=== PATIENT | male | born 1975 | race African-American/Black ===

== ENCOUNTER 2019-10-14 10:01 | Inpatient (IN) ==
[2019-10-14 11:44] LABS: Basophils # 0.1 10*3/uL (0.0-0.2); Basophils % 0.4 % (0.0-0.8); Hematocrit 40.4 VOL% (42.0-52.0); Hemoglobin 13.3 GM/DL (14.0-18.0); Immature Granulocytes % 6.8 %; Immature Granulocytes Absolute 1.57 #; Lymphocytes # 1.5 10*3/uL (1.4-4.0); Lymphocytes % 6.5 % (21.2-54.2); Mean Corpuscular HGB Conc 32.9 GM/DL (32-36); Mean Platelet Volume 9.8 FL (9.6-12.0); Monocytes % 8.4 % (1.7-12.7); Neutrophils % 77.9 % (38.7-73.9); Platelet Count 325 T/CUMM (130-400); Red Blood Count 4.44 MC/CUMM (3.8-5.5); Red Cell Distribution Width 14.3 % (9.3-17.3); White Blood Count 23.2 T/CUMM (4-12)
[2019-10-14 12:02] LABS: Albumin 3.4 G/DL (3.4-5.0); Bilirubin,Total 1.3 MG/DL (0.2-1.0); Calcium 9.3 MG/DL (8.5-10.1); Osmolality,Calculated 257.8 MOS/KG (273-304); Total Protein 8.4 G/DL (6.4-8.3)
[2019-10-14 12:08] LABS: Band Neutrophils 9 % (0-10); Lymphocytes 4 % (20-55); Myelocytes 1 %; Segmented Neutrophils 79 % (50-85); Total Cells Counted 100
[2019-10-14 12:09] LABS: Hypochromasia Slight
[2019-10-14] MEDS ORDERED: SODIUM CHLORIDE 0.9% 1,000 ML IV STA (12:19)
[2019-10-14] MEDS ORDERED: CLINDAMYCIN INJ 900 MG in PREMIX 1 EACH IV STA (13:06)
[2019-10-14] MEDS ORDERED: DOCUSATE SODIUM 100 MG CAPSULE PO PRN (13:42)
[2019-10-14] MEDS ORDERED: LACTULOSE 20 GM/30 ML UDCUP PO PRN (13:42)
[2019-10-14] MEDS ORDERED: ONDANSETRON 4 MG/2 ML VIAL IV PRN (13:42)
[2019-10-14] MEDS ORDERED: MORPHINE 4 MG/1 ML VIAL IV PRN (13:42)
[2019-10-14] MEDS ORDERED: CLINDAMYCIN INJ 50 ML IV ONE (13:42)
[2019-10-14] MEDS ORDERED: ACETAMINOPHEN 325 MG TABLET PO PRN (13:42)
[2019-10-14] MEDS ORDERED: POTASSIUM CHLORIDE RIDER 10 MEQ in PREMIX 1 EACH IV PRN (13:48)
[2019-10-14] MEDS: VANCOMYCIN INJ 1,250 MG in SODIUM CHLORIDE 0.9% 250 ML IV SCH (18:29)
[2019-10-14] MEDS: METHOCARBAMOL 500 MG TABLET PO SCH ×2 (18:29→22:23)
[2019-10-14] MEDS: cefTRIAXone 1,000 MG in SYRINGE 1 EACH IV SCH (18:29)
[2019-10-14] MEDS: SODIUM CHLOR 0.9% KCL 40 MEQ 40 MEQ/1,000 ML BAG IV SCH (18:29)
[2019-10-14] MEDS: ATORVASTATIN 40 MG TABLET PO SCH (22:23)
[2019-10-14] MEDS: allopurinoL 100 MG TABLET PO SCH (22:23)
[2019-10-14] MEDS: POTASSIUM CHLORIDE 20 MEQ TABLET PO PRN (22:23)
[2019-10-15 01:47] LABS: Basophils # 0.1 10*3/uL (0.0-0.2); Basophils % 0.3 % (0.0-0.8); Eosinophils % 0.2 % (0.00-10.9); Hematocrit 34.5 VOL% (42.0-52.0); Hemoglobin 11.6 GM/DL (14.0-18.0); Immature Granulocytes % 5.8 %; Immature Granulocytes Absolute 0.94 #; Lymphocytes # 1.7 10*3/uL (1.4-4.0); Lymphocytes % 10.7 % (21.2-54.2); Mean Corpuscular HGB Conc 33.6 GM/DL (32-36); Mean Corpuscular Volume 90.3 FL (87-102); Mean Platelet Volume 10.1 FL (9.6-12.0); Monocytes % 7.5 % (1.7-12.7); Neutrophils % 75.5 % (38.7-73.9); Platelet Count 312 T/CUMM (130-400); Red Blood Count 3.82 MC/CUMM (3.8-5.5); Red Cell Distribution Width 14.4 % (9.3-17.3); White Blood Count 16.2 T/CUMM (4-12)
[2019-10-15 02:33] LABS: Albumin 2.9 G/DL (3.4-5.0); Bilirubin,Total 1.5 MG/DL (0.2-1.0); Calcium 8.4 MG/DL (8.5-10.1); Osmolality,Calculated 268.1 MOS/KG (273-304); Risk Ratio 2.72; Thyroid Stimulating Hormone 1.05 uIU/ml (0.358-3.74); Total Protein 6.6 G/DL (6.4-8.3); VLDL CHOLESTEROL 13.4 MG/DL
[2019-10-15 03:04] LABS: Anisocytosis 1+; Band Neutrophils 1 % (0-10); Lymphocytes 8 % (20-55); Myelocytes 1 %; Platelet Estimate Normal; Segmented Neutrophils 82 % (50-85); Total Cells Counted 100
[2019-10-15] MEDS: POTASSIUM CHLORIDE 20 MEQ TABLET PO PRN (03:54)
[2019-10-15] MEDS: SODIUM CHLOR 0.9% KCL 40 MEQ 40 MEQ/1,000 ML BAG IV SCH ×3 (03:55→18:16)
[2019-10-15] MEDS: VANCOMYCIN INJ 1,250 MG in SODIUM CHLORIDE 0.9% 250 ML IV SCH ×2 (06:41→18:16)
[2019-10-15] MEDS: SODIUM CHLORIDE 0.9% 1,000 ML IV SCH ×2 (07:36→07:37)
[2019-10-15 08:16] LABS: Cholesterol Crystals None Seen /LPF
[2019-10-15] MEDS: PANTOPRAZOLE 40 MG TABLET PO SCH (09:37)
[2019-10-15] MEDS: METHOCARBAMOL 500 MG TABLET PO SCH ×3 (09:37→21:08)
[2019-10-15] MEDS: allopurinoL 100 MG TABLET PO SCH ×3 (09:37→21:08)
[2019-10-15] MEDS: POTASSIUM CHLORIDE 20 MEQ TABLET PO SCH (09:37)
[2019-10-15] MEDS ORDERED: BUPIVACAINE 0.5% 50 ML VIAL ONE (13:49)
[2019-10-15] MEDS ORDERED: POTASSIUM CHLORIDE RIDER 100 ML IV ONE (14:15)
[2019-10-15] MEDS ORDERED: BACITRACIN OINT 0.9 GM PACK TOP ONE (14:16)
[2019-10-15] MEDS ORDERED: KETOROLAC 30 MG/1 ML VIAL IV PRN (14:43)
[2019-10-15] MEDS ORDERED: SUCCINYLCHOLINE 200 MG/10 ML VIAL ONE (15:01)
[2019-10-15] MEDS ORDERED: propofoL 200 MG/20 ML VIAL IV ONE (15:01)
[2019-10-15] MEDS ORDERED: fentaNYL 100 MCG/2 ML VIAL ONE (15:01)
[2019-10-15] MEDS ORDERED: ONDANSETRON 4 MG/2 ML VIAL ONE (15:02)
[2019-10-15] MEDS ORDERED: NEOSTIGMINE 10 MG/10 ML VIAL ONE (15:02)
[2019-10-15] MEDS ORDERED: ROCURONIUM 100 MG/10 ML VIAL IV ONE (15:02)
[2019-10-15] MEDS ORDERED: GLYCOPYRROLATE 0.4 MG/2 ML VIAL ONE (15:02)
[2019-10-15] MEDS: cefTRIAXone 1,000 MG in SYRINGE 1 EACH IV SCH (16:10)
[2019-10-15] MEDS: ATORVASTATIN 40 MG TABLET PO SCH (21:08)
[2019-10-16] MEDS: SODIUM CHLOR 0.9% KCL 40 MEQ 40 MEQ/1,000 ML BAG IV SCH ×4 (03:41→20:13)
[2019-10-16] MEDS: VANCOMYCIN INJ 1,250 MG in SODIUM CHLORIDE 0.9% 250 ML IV SCH ×2 (05:09→18:56)
[2019-10-16 05:44] LABS: Albumin 2.3 G/DL (3.4-5.0); Bilirubin,Total 0.9 MG/DL (0.2-1.0); Calcium 8.2 MG/DL (8.5-10.1); Osmolality,Calculated 270.7 MOS/KG (273-304); Total Protein 6.5 G/DL (6.4-8.3)
[2019-10-16 05:55] LABS: Basophils % 0.3 % (0.0-0.8); Eosinophils # 0.1 10*3/uL (0.0-0.87); Eosinophils % 0.8 % (0.00-10.9); Hematocrit 32.7 VOL% (42.0-52.0); Hemoglobin 10.5 GM/DL (14.0-18.0); Immature Granulocytes % 5.4 %; Immature Granulocytes Absolute 0.67 #; Lymphocytes # 1.5 10*3/uL (1.4-4.0); Lymphocytes % 12.2 % (21.2-54.2); Mean Corpuscular HGB Conc 32.1 GM/DL (32-36); Mean Corpuscular Volume 94.2 FL (87-102); Mean Platelet Volume 10.2 FL (9.6-12.0); Monocytes % 6.5 % (1.7-12.7); Neutrophils % 74.8 % (38.7-73.9); Platelet Count 279 T/CUMM (130-400); Red Blood Count 3.47 MC/CUMM (3.8-5.5); Red Cell Distribution Width 14.5 % (9.3-17.3); White Blood Count 12.5 T/CUMM (4-12)
[2019-10-16 06:35] LABS: Band Neutrophils 1 % (0-10); Hypochromasia Slight; Lymphocytes 8 % (20-55); Platelet Estimate Adequate; Segmented Neutrophils 89 % (50-85); Total Cells Counted 100
[2019-10-16] MEDS: APIXABAN 2.5 MG TABLET PO SCH ×2 (09:51→20:16)
[2019-10-16] MEDS: METHOCARBAMOL 500 MG TABLET PO SCH ×3 (09:51→20:15)
[2019-10-16] MEDS: PANTOPRAZOLE 40 MG TABLET PO SCH (09:51)
[2019-10-16] MEDS: POTASSIUM CHLORIDE 20 MEQ TABLET PO SCH (09:51)
[2019-10-16] MEDS: allopurinoL 100 MG TABLET PO SCH ×3 (09:51→20:16)
[2019-10-16] MEDS: cefTRIAXone 1,000 MG in SYRINGE 1 EACH IV SCH (18:56)
[2019-10-16] MEDS: ATORVASTATIN 40 MG TABLET PO SCH (20:16)
[2019-10-17 04:56] LABS: Basophils % 0.3 % (0.0-0.8); Eosinophils # 0.2 10*3/uL (0.0-0.87); Eosinophils % 1.7 % (0.00-10.9); Hematocrit 33.4 VOL% (42.0-52.0); Hemoglobin 10.7 GM/DL (14.0-18.0); Immature Granulocytes % 3.4 %; Immature Granulocytes Absolute 0.41 #; Lymphocytes # 1.9 10*3/uL (1.4-4.0); Lymphocytes % 15.3 % (21.2-54.2); Mean Corpuscular Volume 94.6 FL (87-102); Mean Platelet Volume 10.2 FL (9.6-12.0); Monocytes % 6.3 % (1.7-12.7); Platelet Count 260 T/CUMM (130-400); Red Blood Count 3.53 MC/CUMM (3.8-5.5); Red Cell Distribution Width 14.5 % (9.3-17.3); White Blood Count 12.1 T/CUMM (4-12)
[2019-10-17 05:13] LABS: Albumin 2.4 G/DL (3.4-5.0); Bilirubin,Total 1.5 MG/DL (0.2-1.0); Calcium 8.7 MG/DL (8.5-10.1); Osmolality,Calculated 272.7 MOS/KG (273-304); Total Protein 6.6 G/DL (6.4-8.3)
[2019-10-17] MEDS: VANCOMYCIN INJ 1,250 MG in SODIUM CHLORIDE 0.9% 250 ML IV SCH ×2 (06:31→19:28)
[2019-10-17] MEDS: APIXABAN 2.5 MG TABLET PO SCH ×3 (09:12→20:17)
[2019-10-17] MEDS: METHOCARBAMOL 500 MG TABLET PO SCH ×4 (09:12→20:18)
[2019-10-17] MEDS: PANTOPRAZOLE 40 MG TABLET PO SCH (09:12)
[2019-10-17] MEDS: allopurinoL 100 MG TABLET PO SCH ×4 (09:12→20:18)
[2019-10-17] MEDS: POTASSIUM CHLORIDE 20 MEQ TABLET PO SCH (09:12)
[2019-10-17] MEDS: SODIUM CHLOR 0.9% KCL 40 MEQ 40 MEQ/1,000 ML BAG IV SCH ×2 (09:13→19:27)
[2019-10-17] MEDS: cefTRIAXone 1,000 MG in SYRINGE 1 EACH IV SCH (15:10)
[2019-10-17] MEDS: ATORVASTATIN 40 MG TABLET PO SCH (20:17)
[2019-10-18] MEDS: VANCOMYCIN INJ 1,250 MG in SODIUM CHLORIDE 0.9% 250 ML IV SCH ×2 (06:20→18:09)
[2019-10-18 06:37] LABS: Basophils # 0.1 10*3/uL (0.0-0.2); Basophils % 0.4 % (0.0-0.8); Eosinophils # 0.2 10*3/uL (0.0-0.87); Eosinophils % 1.9 % (0.00-10.9); Hematocrit 32.4 VOL% (42.0-52.0); Hemoglobin 10.7 GM/DL (14.0-18.0); Immature Granulocytes % 2.6 %; Immature Granulocytes Absolute 0.31 #; Lymphocytes # 1.3 10*3/uL (1.4-4.0); Lymphocytes % 10.5 % (21.2-54.2); Mean Corpuscular Volume 91.3 FL (87-102); Mean Platelet Volume 9.6 FL (9.6-12.0); Monocytes % 5.2 % (1.7-12.7); Neutrophils % 79.4 % (38.7-73.9); Platelet Count 278 T/CUMM (130-400); Red Blood Count 3.55 MC/CUMM (3.8-5.5); Red Cell Distribution Width 14.3 % (9.3-17.3); White Blood Count 11.9 T/CUMM (4-12)
[2019-10-18 06:50] LABS: Osmolality,Calculated 270.8 MOS/KG (273-304)
[2019-10-18] MEDS: allopurinoL 100 MG TABLET PO SCH ×3 (09:50→20:33)
[2019-10-18] MEDS: APIXABAN 2.5 MG TABLET PO SCH ×2 (09:50→20:33)
[2019-10-18] MEDS: METHOCARBAMOL 500 MG TABLET PO SCH ×3 (09:50→20:33)
[2019-10-18] MEDS: PANTOPRAZOLE 40 MG TABLET PO SCH (09:51)
[2019-10-18] MEDS: POTASSIUM CHLORIDE 20 MEQ TABLET PO SCH (09:54)
[2019-10-18] MEDS ORDERED: cefTRIAXone 1,000 MG in SYRINGE 1 EACH IV SCH (10:00)
[2019-10-18] MEDS: SODIUM CHLOR 0.9% KCL 40 MEQ 40 MEQ/1,000 ML BAG IV SCH (16:44)
[2019-10-18] MEDS ORDERED: BISACODYL 5 MG TABLET PO PRN (16:48)
[2019-10-18] MEDS: ATORVASTATIN 40 MG TABLET PO SCH (20:33)
[2019-10-19 04:25] LABS: Basophils # 0.1 10*3/uL (0.0-0.2); Basophils % 0.4 % (0.0-0.8); Eosinophils # 0.2 10*3/uL (0.0-0.87); Eosinophils % 2.1 % (0.00-10.9); Hematocrit 32.9 VOL% (42.0-52.0); Hemoglobin 10.5 GM/DL (14.0-18.0); Immature Granulocytes % 3.1 %; Immature Granulocytes Absolute 0.35 #; Lymphocytes # 1.6 10*3/uL (1.4-4.0); Mean Corpuscular HGB Conc 31.9 GM/DL (32-36); Mean Corpuscular Volume 92.9 FL (87-102); Mean Platelet Volume 9.9 FL (9.6-12.0); Monocytes % 6.3 % (1.7-12.7); Neutrophils % 74.1 % (38.7-73.9); Platelet Count 309 T/CUMM (130-400); Red Blood Count 3.54 MC/CUMM (3.8-5.5); Red Cell Distribution Width 14.2 % (9.3-17.3); White Blood Count 11.3 T/CUMM (4-12)
[2019-10-19 04:39] LABS: Calcium 8.8 MG/DL (8.5-10.1); Osmolality,Calculated 269.8 MOS/KG (273-304); Uric Acid 2.8 MG/DL (3.5-7.2)
[2019-10-19] MEDS: VANCOMYCIN INJ 1,250 MG in SODIUM CHLORIDE 0.9% 250 ML IV SCH (05:58)
[2019-10-19] MEDS: POTASSIUM CHLORIDE 20 MEQ TABLET PO SCH (10:09)
[2019-10-19] MEDS: APIXABAN 2.5 MG TABLET PO SCH ×2 (10:09→20:23)
[2019-10-19] MEDS: PANTOPRAZOLE 40 MG TABLET PO SCH (10:09)
[2019-10-19] MEDS: METHOCARBAMOL 500 MG TABLET PO SCH ×3 (10:09→20:23)
[2019-10-19] MEDS: allopurinoL 100 MG TABLET PO SCH ×3 (10:14→20:23)
[2019-10-19] MEDS: SODIUM CHLOR 0.9% KCL 40 MEQ 40 MEQ/1,000 ML BAG IV SCH (18:58)
[2019-10-19] MEDS: ATORVASTATIN 40 MG TABLET PO SCH (20:23)
[2019-10-20 07:30] VITALS: BP 109/66
[2019-10-20] MEDS: APIXABAN 2.5 MG TABLET PO SCH (08:25)
[2019-10-20] MEDS: POTASSIUM CHLORIDE 20 MEQ TABLET PO SCH (08:25)
[2019-10-20] MEDS: METHOCARBAMOL 500 MG TABLET PO SCH (08:25)
[2019-10-20] MEDS: PANTOPRAZOLE 40 MG TABLET PO SCH (08:26)
[2019-10-20] MEDS: allopurinoL 100 MG TABLET PO SCH (08:26)
[2019-10-20] MEDS ORDERED: HEPARIN LOCK FLUSH 500 UNIT/5 ML SYRINGE IV ONE (10:16)
== END 2019-10-20 11:48 | disposition home or self-care (01) | DRG 315 ==
LOC: N.ED 10:01 → SUATTDRO 13:42 → SUPCPDRO 13:42 → N.EDINP 13:42 → N.4E 16:38
PROVIDERS: ADMIT Family Medicine; ATTEND Internal Medicine